=== PATIENT | male | born 1990 | race Caucasian/White ===

== ENCOUNTER → 2022-07-04 13:43 | Outpatient (BNVA) | payer BC, SELFPAY | PROVIDERS: Family Provider Nurse Practitioner; PCP Nurse Practitioner Family; Visit Provider Nurse Practitioner Family | DX: R63.5 Abnormal weight gain (principal) | CPT/HCPCS: 80053; 80061; 84439; 84443; 84481 ==

== ENCOUNTER 2023-01-11 10:07 | Outpatient (CLI) | payer BC, SELFPAY ==
--- NOTE | 2023-01-11 10:24 | XR_ITS ---
WS: [id number] Lumbar spine, 3 views, 01/11/2023 Clinical Data: M54.50 - Low back pain, unspecified Comparison: None. Findings: No compression fractures or subluxation is seen. No disc space narrowing is seen. The transverse proc esses and SI joints are normal. Impression: Negative lumbar spine.
== END 2023-01-11 10:08 | disposition home or self-care (01) ==
PROVIDERS: PCP Nurse Practitioner Family; Visit Provider Nurse Practitioner Family
DX: M54.50 Low back pain, unspecified (principal)
CPT/HCPCS: 72100